=== PATIENT | male | born 1990 | race African-American/Black ===

== ENCOUNTER 2018-10-06 09:31 | Emergency (ER) | payer OTHER ==
[~2018-10-06] VITALS: Ht 165.1 cm; Wt 74.8 kg
[2018-10-06 10:11] LABS: BILIRUBIN,URINE NEGATIVE (NEG); CLARITY,URINE CLEAR; COLOR,URINE YELLOW; NITRITE,URINE NEGATIVE (NEG); PH,URINE 6.5; PROTEIN,URINE NEGATIVE (NEG-TRACE); UROBILINOGEN,URINE 0.2 mg/dL (0.2 mg/dL)
[2018-10-06 10:12] LABS: BACTERIA,URINE 0 /HPF (0-FEW); RBC,URINE 0 /HPF (0-2); WBC,URINE 0 /HPF (0-4)
--- NOTE | 2018-10-06 10:18 | PHYS DOC ---
Past Medical History Past Medical History: No Pertinent History Past Surgical History: Other Additional Past Surgical Histo: TESTICLE REMOVED Alcohol Use: None Drug Use: None Adult General Chief Complaint Chief Complaint: PAIN ON URINATION HPI HPI Patient is a 28 year old male with no significant medical history who presents to the ED today complaining of urinary frequency for 3 months. Patient denies any other symptoms. Review of Systems Review of Systems Constitutional: Denies fever or chills [] Eyes: Denies change in visual acuity, redness, or eye pain [] HENT: Denies nasal congestion or sore throat [] Respiratory: Denies cough or shortness of breath [] Cardiovascular: No additional information not addressed in HPI [] GI: Denies abdominal pain, nausea, vomiting, bloody stools or diarrhea [] : Reports urinary frequency. Denies dysuria or hematuria [] Musculoskeletal: Denies back pain or joint pain [] Integument: Denies rash or skin lesions [] Neurologic: Denies headache, focal weakness or sensory changes [] All other systems were reviewed and found to be within normal limits, except as documented in this note. Current Medications Current Medications Current Medications Medications (Trade) Dose Ordered Sig/Leila Start Time Stop Time Status Last Admin Dose Admin Azithromycin (Zithromax) 1,000 mg 1X ONCE 10/06/18 10:45 10/06/18 10:46 DC 10/06/18 10:51 1,000 MG Ceftriaxone Sodium (Rocephin Im) 250 mg 1X ONCE 10/06/18 10:45 10/06/18 10:46 DC 10/06/18 10:52 250 MG Metronidazole (Flagyl) 2,000 mg 1X ONCE 10/06/18 10:45 10/06/18 10:46 DC 10/06/18 10:51 2,000 MG Allergies Allergies Allergies Coded Allergies Type Severity Reaction Last Updated Verified No Known Drug Allergies 10/06/18 No Physical Exam Physical Exam Constitutional: Well developed, well nourished, no acute distress, non-toxic appearance. [] HENT: Normocephalic, atraumatic, bilateral external ears normal, oropharynx moist, no oral exudates, nose normal. [] Eyes: PERRLA, EOMI, conjunctiva normal, no discharge. [] Neck: Normal range of motion, no tenderness, supple, no stridor. [] Cardiovascular:Heart rate regular rhythm, no murmur [] Lungs & Thorax: Bilateral breath sounds clear to auscultation [] Abdomen: Bowel sounds normal, soft, no tenderness, no masses, no pulsatile masses. [] male :refused male exam Skin: Warm, dry, no erythema, no rash. [] Back: No tenderness, no CVA tenderness. [] Extremities: No tenderness, no cyanosis, no clubbing, ROM intact, no edema. [] Neurologic: Alert and oriented X 3, normal motor function, normal sensory function, no focal deficits noted. [] Psychologic: Affect normal, judgement normal, mood normal. [] Current Patient Data Vital Signs Vital Signs Date Time Temp Pulse Resp B/P (MAP) Pulse Ox O2 Delivery O2 Flow Rate FiO2 10/06/18 09:48 98.6 79 18 154/89 (110) 99 Room Air 98.6 Lab Values Laboratory Tests Test 10/06/18 09:45 Urine Collection Type Unknown Urine Color Yellow Urine Clarity Clear Urine pH 6.5 Urine Specific [place] 1.015 Urine Protein Negative mg/dL (NEG-TRACE) Urine Glucose (UA) Negative mg/dL (NEG) Urine Ketones (Stick) Negative mg/dL (NEG) Urine Blood Negative (NEG) Urine Nitrite Negative (NEG) Urine Bilirubin Negative (NEG) Urine Urobilinogen Dipstick 0.2 mg/dL (0.2 mg/dL) Urine Leukocyte Esterase Negative (NEG) Urine RBC 0 /HPF (0-2) Urine WBC 0 /HPF (0-4) Urine Bacteria 0 /HPF (0-FEW) EKG EKG [] Radiology/Procedures Radiology/Procedures [] Course & Med Decision Making Course & Med Decision Making Pertinent Labs and Imaging studies reviewed. (See chart for details) This is a 28-year-old male patient presenting to the ED today complaining of urinary frequency for 3 months, urine analysis is negative for infection, negative for ketones, negative for glucose. Patient declined male rectal exam. He requested CT, CT of the abdomen and pelvic is negative for any acute findings. Provided urologist for follow-up as an outpatient I had ordered a blood glucose on the patient, unfortunately he was found eating in the ED, blood sugar would not be accurate considering the food he was eating. He is in no distress. He'll be discharged with instructions to follow-up with his own doctor or urologist. Davi Disclaimer [place] Disclaimer This electronic medical record was generated, in whole or in part, using a voice recognition dictation system. Departure Departure Impression: Primary Impression: Frequency of urination Disposition: HOME, SELF-CARE Condition: STABLE Referrals: UNKNOWN PCP NAME (PCP) EBONIE FINN MD please follow up in 1 week Patient Instructions: Urinary Frequency Additional Instructions: You were elevated in the emergency room for urinary frequency. We provided you a urologist, contact them today and set up a follow-up appointment. DEVON WONG APRN Oct 06, 2018 10:18
[2018-10-06] MEDS ORDERED: cefTRIAXone IM 250 MG VIAL IM ONE (10:45)
[2018-10-06] MEDS ORDERED: metroNIDAZOLE 500 MG TABLET PO ONE (10:45)
[2018-10-06] MEDS ORDERED: AZITHROMYCIN 250 MG TABLET. PO ONE (10:45)
--- NOTE | 2018-10-06 10:48 | RAD ---
CT abdomen pelvis without contrast dated 10/06/2018. No comparison available. CLINICAL INDICATION: Urinary frequency. TECHNIQUE: Continues axial imaging the abdomen and pelvis performed without the administration of IV or oral contrast. One or more of the following individualized dose reduction techniques were utilized for this examination: 1. Automated exposure control 2. Adjustment of the mA and/or kV according to patient size 3. Use of iterative reconstruction technique FINDINGS: Limited images of lung bases are clear. Heart size within normal limits. No pleural or pericardial effusion. Solid abdominal viscera not well evaluated in the absence of contrast material. No apparent attenuation abnormality of the liver or spleen. Pancreas, adrenal glands and gallbladder are unremarkable. Kidneys are symmetric in size and attenuation. No calcific renal or ureteral stone. No hydronephrosis. No inflammatory changes in the perinephric fat. Unopacified GI tract normal in caliber and contour. No focal bowel wall thickening. No inflammatory stranding in the mesentery. The appendix contain some high density material but is normal in caliber. Abdominal aorta normal in caliber. Images the pelvis show nondistended urinary bladder. Prostate gland mildly enlarged. No free fluid. There are borderline enlarged bilateral inguinal lymph nodes Bone windows show no acute findings. IMPRESSION: 1. No acute abnormality of abdomen or pelvis. No evidence of renal stone or hydronephrosis. 2. Normal appendix. 3. There are a few borderline enlarged bilateral inguinal lymph nodes, nonspecific. There is no apparent retroperitoneal lymphadenopathy, although evaluation is somewhat limited due to body habitus and lack of IV contrast. Electronically signed by: Ruben Moses MD (10/06/2018 10:45 AM) [id number]
[2018-10-06 11:15] VITALS: BP 127/78
== END 2018-10-06 11:27 | disposition home or self-care (01) ==
LOC: ER 09:31
DX: R35.0 Frequency of micturition (principal)
CPT/HCPCS: 74176; 81001; 87491; 87591; 96372; 99284; J0696; Q0144